=== PATIENT | male | born 2000 | race Two or more races ===

== ENCOUNTER 2024-11-24 15:31 | Emergency (ER) | payer MEDICAID, SELFPAY ==
[2024-11-24 15:32] VITALS: BMI 28.7
[2024-11-24 15:50] VITALS: BP 135/81; PULSE 95; RESP 20; TEMP 36.8; O2SAT 96
--- NOTE | 2024-11-24 15:57 | EDNOTE_ITS ---
Lower Extremity Injury RME/HPI General Chief Complaint: Extremity Injury, Lower Stated Complaint: LEFT LEG PAIN/INJURY WHILE AT WORK Time Seen by Provider: 11/24/24 15:36 Arrival date/time: 11/24/24 15:31 24-year-old male presents to the emergency department with complaints of left leg pain after lifting today Limitations: no limitations Related Data Previous Rx's ?Medication ?Instructions ?Recorded naproxen 500 mg tablet 500 mg PO BID PRN pain #30 t abs 06/24/23 sennosides 8.6 mg-docusate sodium 1 tab-cap PO QDAY DE N constipation 06/13/24 50 mg tablet (Senokot-S) #14 tabs cyclobenzaprine 10 mg tablet 10 mg PO TID PRN muscle s pasm 10 11/24/24 days #30 tab-caps hydrocodone 5 mg-acetaminophen 325 1 tab PO BID PRN pa in #8 tabs 11/24/24 mg tablet Allergies Allergy/AdvReac Type Severity Reaction Status Date / Time No Known Allergies Allergy Verified 11/24/24 15:35 Review of Systems Review of Systems Systems Reviewed: All systems reviewed, normal except as documented Constitutional Constitutional: Reports system reviewed and no additional complaints, except as documented, Denies fever(s) and Denies headache(s) Eyes Eyes: Reports system reviewed and no additional complaints, except as documented and Denies blurry vision ENT Ears, Nose, Mouth, and Throat: Reports system reviewed and no additional complaints, except as documented, Denies headache(s), Denies nasal congestion and Denies nasal discharge Cardiovascular Cardiovascular: Reports system reviewed and no additional complaints, except as documented, Denies chest pain and Denies dyspnea Respiratory Respiratory: Reports system reviewed and no additional complaints, except as documented, Denies chest congestion, Denies cough and Denies dyspnea Gastrointestinal Gastrointestinal: Reports system reviewed and no additional complaints, except as documented and Denies abdominal pain Musculoskeletal Musculoskeletal: Reports system reviewed and no additional complaints, except as documented and Reports other (Leg pain) Integumentary/Breasts Skin/Breast: Reports system reviewed and no additional complaints, except as documented and Denies rash Neurologic Neurologic: Reports system reviewed and no additional complaints, except as documented, Reports as per HPI and Denies headache(s) Past Medical History Past Medical History CARDIAC: Negative Cardiac Disorders RESPIRATORY: Negative Asthma GENITOURINARY: Negative Renal Disease ENDOCRINE: Negative Diabetes Mellitus Type 2 HEMATOLOGIC: Negative Sickle Cell Disease Social History SMOKING STATUS: Never smoker ED Exam General Limitations: Present no limitations General appearance: Present alert and in no apparent distress Head Head exam: Present atraumatic, normocephalic and normal inspection Eye Eye exam: Present normal appearance, PERRL and EOMI ENT ENT exam: Present normal exam, normal oropharynx and mucous membranes moist Neck Neck exam: Present normal inspection, full ROM and trachea midline Chest Chest inspection: Present normal inspection and symmetric chest wall rise Respiratory Respiratory exam: Present normal lung sounds bilaterally Cardiovascular Cardiovascular exam: Present regular rate, normal rhythm and normal heart sounds Abdominal Exam Abdominal exam: Present soft and normal bowel sounds Extremities Exam Extremities exam: Present full ROM, tenderness and normal capillary refill; Absent joint swelling Back Exam Back exam: Present normal inspection and full ROM Neurological Exam Neurological exam: Present alert, oriented X3 and CN II-XII intact Psychiatric Psychiatric exam: Present normal affect and normal mood Skin Skin exam: Present warm, dry, intact and normal color Course Quality Measures none Vital Signs Vital signs: Vital Signs Temperature 98.2 F 11/24/24 15:50 Pulse Rate 95 11/24/24 15:50 Respiratory Rate 20 11/24/24 15:50 Blood Pressure 135/81 H 11/24/24 15:50 Pulse Oximetry (%) 96 11/24/24 15:50 Oxygen Delivery Method Room Air 11/24/24 15:50 O2 saturation 96% r/a wnl Extremity Injury, Lower MDM Narrative MDM Narrative:: 24-year-old male presents to the emergency department with complaints of left leg pain after lifting today On exam patient presents emergency department today complains of left leg pain On exam patient has no swelling or bruising to left leg symptoms consistent with muscle strain Patient discharged home in no distress to follow-up with primary care doctor in the next 24 to 48 hours and for any worsening symptoms to return to the ER immediately Patient data External records reviewed:: [facility] previous records Clinical information provided by:: patient Social determinants that could affect healthcare access:: none Patient has the following chronic illnesses:: None How is presenting disease/condition affected by chronic disease/condition?: no chronic disease Evaluation data The following diagnostics were reviewed and interpreted by me:: other (specify) (N/A) Lab and/or radiology exams considered but not ordered:: N/A Interpretation Summary: N/A Medications / Prescriptions Medications or Prescriptions considered but not ordered:: Given Medication administrations:: Given Consultations Consultation(s) initiated? (list below): No Diagnosis Extremity Injury, Lower Differential Diagnosis: other (Left leg pain) Most likely diagnosis given after review of the tests above:: Left leg pain Admission Indicated Admission indicated?: not indicated Admission Request Was there a request for admission?: No Disposition Plan Disposition Plan: Discharge Discharge Attestation Discharge Attestation: The patient and all family members were given an opportunity to ask questions and understood the discharge instructions. Discharge instructions specifically effects, indications for sooner follow up or return to the emergency department, and the expected course of current diagnosis. Patient condition: Stable Discharge Plan Plan Patient Disposition: HOME (Self Care) Disposition Comment: Stable Prescriptions/Referrals Prescriptions/Med Rec: New cyclobenzaprine 10 mg tablet 10 mg PO TID PRN (Reason: muscle spasm) 10 Days Qty: 30 0RF hydrocodone-acetaminophen 5-325 mg tablet 1 tab PO BID MDD 10 PRN (Reason: pain) Qty: 8 0RF No Action naproxen 500 mg tablet 500 mg PO BID PRN (Reason: pain) Qty: 30 0RF sennosides-docusate sodium [Senokot-S] 8.6-50 mg tablet 1 tab-cap PO QDAY PRN (Reason: constipation) Qty: 14 0RF Problem List Clinical Impression: Acute leg pain Patient/Caregiver Discharge Instructions Education Materials: ED RICE Additional Instructions: Please follow up with your primary care doctor in the next 24-48hrs for any worsening symptoms return here immediately Print Language: Greek Stand Alone Forms: [employer] Award Info., Work/School Release, Patient Portal Info Letter ZAKIYA/STEPHANIE Supervising Physician ZAKIYA/STEPHANIE Supervising Physician: Dr Buitrago
== END 2024-11-24 16:10 | disposition home or self-care (01) ==
PROVIDERS: Emergency Provider Emergency Medicine
DX: M79.605 Pain in left leg (principal)
CPT/HCPCS: 99281

== ENCOUNTER 2025-08-20 16:03 | Emergency (ER) | payer SELFPAY ==
[2025-08-20 16:12] VITALS: BP 148/86; PULSE 81; RESP 19; TEMP 36.7; O2SAT 98; BMI 29.6
--- NOTE | 2025-08-20 16:24 | EDNOTE_ITS ---
Lower Extremity Injury RME/HPI General Chief Complaint: Extremity Injury, Lower Stated Complaint: LEFT LEG INJURY Time Seen by Provider: 08/20/25 16:04 Arrival date/time: 08/20/25 16:03 24-year-old male presents to the emergency department today for complaints of left calf pain and left upper leg pain patient reports he twisted his left knee while at work patient denies any direct trauma but is concerned about a hamstring tear patient also states he has a skin sore/abscess to his lower back ongoing for a month Limitations: no limitations Related Data Previous Rx's ?Medication ?Instructions ?Recorded naproxen 500 mg tablet 500 mg PO BID PRN pain #30 t abs 06/24/23 sennosides 8.6 mg-docusate sodium 1 tab-cap PO QDAY MN N constipation 06/13/24 50 mg tablet (Senokot-S) #14 tabs hydrocodone 5 mg-acetaminophen 325 1 tab PO BID PRN pa in #8 tabs 11/24/24 mg tablet clindamycin HCl 300 mg capsule 300 mg PO TID 7 days #2 1 caps 08/20/25 ibuprofen 800 mg tablet 800 mg PO TID PRN pain #30 t abs 08/20/25 mupirocin 2 % topical ointment 1 applic topical TID 10 days #22 08/20/25 grams Allergies Allergy/AdvReac Type Severity Reaction Status Date / Time No Known Allergies Allergy Verified 08/20/25 16:05 Review of Systems Review of Systems Systems Reviewed: All systems reviewed, normal except as documented Constitutional Constitutional: Reports system reviewed and no additional complaints, except as documented, Denies fever(s) and Denies headache(s) Eyes Eyes: Reports system reviewed and no additional complaints, except as documented and Denies blurry vision ENT Ears, Nose, Mouth, and Throat: Reports system reviewed and no additional complaints, except as documented, Denies headache(s), Denies nasal congestion and Denies nasal discharge Cardiovascular Cardiovascular: Reports system reviewed and no additional complaints, except as documented, Denies chest pain and Denies dyspnea Respiratory Respiratory: Reports system reviewed and no additional complaints, except as documented, Denies chest congestion, Denies cough and Denies dyspnea Gastrointestinal Gastrointestinal: Reports system reviewed and no additional complaints, except as documented and Denies abdominal pain Musculoskeletal Musculoskeletal: Reports system reviewed and no additional complaints, except as documented and Reports arthralgias (Left leg pain) Integumentary/Breasts Skin/Breast: Reports system reviewed and no additional complaints, except as documented, Denies rash and Reports other (Abscess/cyst lower back) Neurologic Neurologic: Reports system reviewed and no additional complaints, except as documented, Reports as per HPI and Denies headache(s) Past Medical History Past Medical History CARDIAC: Negative Cardiac Disorders RESPIRATORY: Negative Asthma GENITOURINARY: Negative Renal Disease ENDOCRINE: Negative Diabetes Mellitus Type 2 HEMATOLOGIC: Negative Sickle Cell Disease Social History SMOKING STATUS: Never smoker ED Exam General Limitations: Present no limitations General appearance: Present alert and in no apparent distress Head Head exam: Present atraumatic, normocephalic and normal inspection Eye Eye exam: Present normal appearance, PERRL and EOMI ENT ENT exam: Present normal exam, normal oropharynx and mucous membranes moist Neck Neck exam: Present normal inspection, full ROM and trachea midline Chest Chest inspection: Present normal inspection and symmetric chest wall rise Respiratory Respiratory exam: Present normal lung sounds bilaterally Cardiovascular Cardiovascular exam: Present regular rate, normal rhythm and normal heart sounds Abdominal Exam Abdominal exam: Present soft and normal bowel sounds; Absent distention or tenderness Extremities Exam Extremities exam: Present normal inspection, full ROM, tenderness (Left thigh pain left calf pain), normal capillary refill and calf tenderness; Absent pedal edema or joint swelling Back Exam Back exam: Present normal inspection and full ROM Neurological Exam Neurological exam: Present alert, oriented X3, CN II-XII intact, normal gait and reflexes normal; Absent motor sensory deficit Psychiatric Psychiatric exam: Present normal affect and normal mood Skin Skin exam: Present warm, dry, intact and normal color Course Quality Measures none Vital Signs Vital signs: Vital Signs Temperature 98.0 F 08/20/25 16:12 Pulse Rate 81 08/20/25 16:12 Respiratory Rate 19 08/20/25 16:12 Blood Pressure 148/86 H 08/20/25 16:12 Pulse Oximetry (%) 98 08/20/25 16:12 Oxygen Delivery Method Room Air 08/20/25 16:12 O2 saturation 98% room air within normal limits Extremity Injury, Lower MDM Narrative MDM Narrative:: 24-year-old male presents to the emergency department today for complaints of left calf pain and left upper leg pain patient reports he twisted his left knee while at work patient denies any direct trauma but is concerned about a hamstring tear patient also states he has a skin sore/abscess to his lower back ongoing for a month On exam patient well-appearing patient does not appear look toxic no acute distress On exam patient is no swelling or bruising of leg On exam patient has what appears to be a small infected cyst to the lower back Explained to the patient he is to have the cyst looked at by his PCP after treatment Patient discharged home in no distress to follow-up with primary care doctor in the next 24 to 48 hours and for any worsening symptoms to return to the ER immediately Patient data External records reviewed:: [facility] previous records Clinical information provided by:: patient Social determinants that could affect healthcare access:: none Patient has the following chronic illnesses:: None How is presenting disease/condition affected by chronic disease/condition?: no chronic disease Evaluation data The following diagnostics were reviewed and interpreted by me:: other (specify) (N/A) Lab and/or radiology exams considered but not ordered:: Considered and not ordered Interpretation Summary: N/A Medications / Prescriptions Medications or Prescriptions considered but not ordered:: Given Medication administrations:: Given Consultations Consultation(s) initiated? (list below): No Diagnosis Most likely diagnosis given after review of the tests above:: Cyst, knee sprain Admission Indicated Admission indicated?: not indicated Admission Request Was there a request for admission?: No Disposition Plan Disposition Plan: Discharge Discharge Attestation Discharge Attestation: The patient and all family members were given an opportunity to ask questions and understood the discharge instructions. Discharge instructions specifically effects, indications for sooner follow up or return to the emergency department, and the expected course of current diagnosis. Patient condition: Stable Discharge Plan Plan Patient Disposition: HOME (Self Care) Discharge Disposition comment: Stable Prescriptions/Referrals Prescriptions/Med Rec: New clindamycin HCl 300 mg capsule 300 mg PO TID 7 Days Qty: 21 0RF ibuprofen 800 mg tablet 800 mg PO TID PRN (Reason: pain) Qty: 30 0RF mupirocin 2 % ointment 1 applic topical TID 10 Days Qty: 22 0RF No Action naproxen 500 mg tablet 500 mg PO BID PRN (Reason: pain) Qty: 30 0RF sennosides-docusate sodium [Senokot-S] 8.6-50 mg tablet 1 tab-cap PO QDAY PRN (Reason: constipation) Qty: 14 0RF hydrocodone-acetaminophen 5-325 mg tablet 1 tab PO BID MDD 10 PRN (Reason: pain) Qty: 8 0RF Problem List Clinical Impression: Leg pain, left, Sebaceous cyst Patient/Caregiver Discharge Instructions Education Materials: ED RICE Additional Instructions: Please follow up with your primary care doctor in the next 24-48hrs for any worsening symptoms return here immediately Print Language: Gambian Stand Alone Forms: [employer] Award Info., Work/School Release, Patient Portal Info Letter PA/MANAGER PROVIDER RELATIONS Supervising Physician PA/MANAGER PROVIDER RELATIONS Supervising Physician: Dr. Iglesias
== END 2025-08-20 16:39 | disposition home or self-care (01) ==
LOC: SERX 16:46
PROVIDERS: Emergency Provider Nurse Practitioner Primary Care
DX: L72.3 Sebaceous cyst (principal)
CPT/HCPCS: 99281